=== PATIENT | female | born 1935 | race Caucasian/White ===

== ENCOUNTER 2016-11-25 08:57 | Outpatient (CLI) | payer MEDICARE, OTHER ==
[2016-11-25 09:47] LABS: Hemoglobin A1c 5.5 % (4.0-6.0)
[2016-11-25 10:13] LABS: ALT (SGPT) 17 U/L (0-55); AST (SGOT) 17 U/L (5-34); Albumin 4.2 g/dL (3.4-4.8); Alkaline Phosphatase 88 U/L (40-150); Anion Gap 15 mmol/L (10-20); BUN (Urea Nitrogen) 13 mg/dL (9.8-20.1); Bilirubin, Direct 0.2 mg/dL (0.1-0.3); Bilirubin, Total 0.8 mg/dL (0.2-1.2); Calc. Creatinine Clearance 0 mL/min (70-130); Calcium 9.4 mg/dL (7.8-10.44); Carbon Dioxide 27 mmol/L (23-31); Cardiac Risk 3.1 (Less than 4.5); Chloride 104 mmol/L (98-107); Cholesterol 192 mg/dL (< 200 Desired); Estimated GFR-MDRD 74; Glucose 120 mg/dL (83-110); HDL Cholesterol 61 mg/dL (>60 Neg Risk); LDL Cholesterol, Calculated 107 mg/dL; Protein, Total 6.6 g/dL (5.8-8.1); Sodium 142 mmol/L (136-145); Triglycerides 120 mg/dL (Less than 150)
[2016-11-25 10:25] LABS: Band 1 % (5-11); Eosinophils 2 % (0-10); Hemoglobin 14.4 g/dL (12.0-16.0); Lymphocytes 52 % (21-51); MDiff Complete? YES; Mean Corpuscular HGB CONC 32.6 g/dL (32.0-36.0); Mean Corpuscular Hemoglobin 31.7 pg (27.0-31.0); Mean Platelet Volume 6.9 fL (7.4-10.4); Monocytes 3 % (0-10); Neutrophil 42 % (42-75); PLT Morphology Comment Appears Adequate; Platelet Count 378 thou/uL (130-400); RBC Distribution Width 12.3 % (11.5-14.5); Red Blood Cell (RBC) Count 4.56 mill/uL (4.20-5.40); White Blood Cell (WBC) Count 18.5 thou/uL (4.8-10.8)
== END 2016-11-25 08:58 | disposition home or self-care (01) ==
LOC: MADLABBHPM 08:57
PROVIDERS: ATTEND Family Medicine
DX: R73.01 Impaired fasting glucose (principal); I10 Essential (primary) hypertension; M81.0 Age-related osteoporosis without current pathological fracture
CPT/HCPCS: 36415; 80048; 80061; 80076; 83036; 84443; 85025

== ENCOUNTER 2017-02-23 07:42 | Outpatient (CLI) | payer MEDICARE, OTHER ==
[2017-02-23 08:43] LABS: Hemoglobin 13.8 g/dL (12.0-16.0); Mean Corpuscular Volume 99.2 fL (81.0-99.0); Red Blood Cell (RBC) Count 4.04 mill/uL (4.20-5.40); White Blood Cell (WBC) Count 21.5 thou/uL (4.8-10.8)
[2017-02-23 08:44] LABS: Manual Diff?? YES; Mean Corpuscular HGB CONC 34.6 g/dL (32.0-36.0); Mean Corpuscular Hemoglobin 34.3 pg (27.0-31.0); Mean Platelet Volume 7.1 fL (7.4-10.4); Platelet Count 319 thou/uL (130-400); RBC Distribution Width 13.2 % (11.5-14.5)
[2017-02-23 09:12] LABS: Lymphocytes 32 % (21-51); Monocytes 6 % (0-10); Neutrophil 42 % (42-75); Reactive Lymphocytes 20 % (0-10)
[2017-02-23 09:13] LABS: Anisocytosis SLIGHT = 6-15 cells (100X) (0-5/hpf); MDiff Complete? YES; PLT Morphology Comment Appears Adequate
[2017-02-23 17:33] LABS: Hemoglobin A1c 5.2 % (4.0-6.0)
[2017-02-23 18:08] LABS: ALT (SGPT) 12 U/L (8-55); AST (SGOT) 17 U/L (5-34); Albumin 4.1 g/dL (3.4-4.8); Alkaline Phosphatase 94 U/L (40-150); Anion Gap 18 mmol/L (10-20); BUN (Urea Nitrogen) 13 mg/dL (9.8-20.1); Bilirubin, Direct 0.2 mg/dL (0.1-0.3); Bilirubin, Total 0.4 mg/dL (0.2-1.2); Calc. Creatinine Clearance 0 mL/min (70-130); Calcium 8.7 mg/dL (7.8-10.44); Carbon Dioxide 22 mmol/L (23-31); Cardiac Risk 2.4 (Less than 4.5); Chloride 104 mmol/L (98-107); Cholesterol 189 mg/dl (< 200 Desired); Estimated GFR-MDRD 80; Glucose 104 mg/dL (83-110); HDL Cholesterol 79 mg/dL (>60 Neg Risk); LDL Cholesterol, Calculated 93 mg/dL; Potassium 4.2 mmol/L (3.5-5.1); Protein, Total 6.5 g/dL (6.0-8.3); Sodium 140 mmol/L (136-145); Triglycerides 84 mg/dL (Less than 150)
== END 2017-02-23 07:43 ==
LOC: MADLABBHPM 07:42
PROVIDERS: ATTEND Family Medicine
DX: R73.01 Impaired fasting glucose (principal); R89.9 Unspecified abnormal finding in specimens from other organs, systems and tissues
CPT/HCPCS: 36415; 80048; 80061; 80076; 83036; 85025; 85060

== ENCOUNTER 2017-06-01 08:44 | Outpatient (CLI) | payer MEDICARE, OTHER ==
[2017-06-01 09:29] LABS: Hemoglobin A1c 5.2 % (4.0-6.0)
[2017-06-01 10:11] LABS: ALT (SGPT) 17 U/L (8-55); AST (SGOT) 20 U/L (5-34); Albumin 4.1 g/dL (3.4-4.8); Alkaline Phosphatase 92 U/L (40-150); Anion Gap 17 mmol/L (10-20); BUN (Urea Nitrogen) 12 mg/dL (9.8-20.1); Bilirubin, Direct 0.3 mg/dL (0.1-0.3); Bilirubin, Total 0.7 mg/dL (0.2-1.2); Calc. Creatinine Clearance 0 mL/min (70-130); Calcium 9.4 mg/dL (7.8-10.44); Carbon Dioxide 26 mmol/L (23-31); Cardiac Risk 2.9 (Less than 4.5); Chloride 104 mmol/L (98-107); Cholesterol 209 mg/dl (< 200 Desired); Estimated GFR-MDRD 79; Glucose 113 mg/dL (83-110); HDL Cholesterol 72 mg/dL (>60 Neg Risk); LDL Cholesterol, Calculated 111 mg/dL; Potassium 3.8 mmol/L (3.5-5.1); Protein, Total 6.8 g/dL (6.0-8.3); Sodium 143 mmol/L (136-145); Triglycerides 130 mg/dL (Less than 150)
[2017-06-01 10:46] LABS: Hemoglobin 14.4 g/dL (12.0-16.0); Lymphocytes 4 % (21-51); MDiff Complete? YES; Mean Corpuscular HGB CONC 32.4 g/dL (32.0-36.0); Mean Corpuscular Hemoglobin 32.3 pg (27.0-31.0); Mean Corpuscular Volume 99.6 fl (81.0-99.0); Mean Platelet Volume 6.6 fL (7.4-10.4); Monocytes 4 % (0-10); Neutrophil 44 % (42-75); PLT Morphology Comment Appears Adequate; Platelet Count 337 thou/uL (130-400); RBC Distribution Width 13.3 % (11.5-14.5); RBC Morphology Normal; Reactive Lymphocytes 48 % (0-10); Red Blood Cell (RBC) Count 4.46 mill/uL (4.20-5.40)
== END 2017-06-01 08:45 | disposition home or self-care (01) ==
LOC: MADLABBHPM 08:44
PROVIDERS: ATTEND Family Medicine
DX: C91.10 Chronic lymphocytic leukemia of B-cell type not having achieved remission (principal); R73.01 Impaired fasting glucose; I10 Essential (primary) hypertension
CPT/HCPCS: 36415; 80048; 80061; 80076; 83036; 85025

== ENCOUNTER 2018-06-21 13:39 | Outpatient (CLI) | payer MEDICARE ==
--- NOTE | 2018-06-21 15:08 | RAD ---
RIGHT KNEE 3 VIEWS: History Right knee pain. FINDINGS: Near-complete loss of joint space medial compartment with minimal lateral subluxation. Genu varus. Fluid distention of the suprapatellar bursa. Prominent tricompartmental osteophytosis. IMPRESSION: Prominent osteoarthritic changes right knee including near complete loss of joint space at the medial compartment and a large joint effusion. POS: [facility]
== END 2018-06-21 13:40 | disposition home or self-care (01) ==
LOC: MADRAD 13:39
PROVIDERS: ATTEND Orthopaedic Surgery
DX: M25.561 Pain in right knee (principal); M17.11 Unilateral primary osteoarthritis, right knee; M25.461 Effusion, right knee

== ENCOUNTER 2023-09-19 14:20 | Outpatient (CLI) | payer MEDICARE ==
[2023-09-19 15:03] LABS: ALT (SGPT) 8 U/L (8-55); AST (SGOT) 15 U/L (5-34); Alkaline Phosphatase 77 U/L (40-110); Bilirubin, Direct 0.2 mg/dL (0.1-0.3); Bilirubin, Total 0.5 mg/dL (0.2-1.2); Protein, Total 6.6 g/dL (5.8-8.1)
== END 2023-09-19 14:21 | disposition home or self-care (01) ==
LOC: MADLABBHPM 14:20
PROVIDERS: ATTEND Internal Medicine
DX: B35.0 Tinea barbae and tinea capitis (principal)
CPT/HCPCS: 80076